=== PATIENT | female | born 1985 | race Hispanic/Latino ===

== ENCOUNTER → 2020-12-08 | Day surgery (SDC) | payer OTHER | LOC: BICULT 12:54 | PROVIDERS: ATTEND Family Medicine | PROC: 0H9U0ZX Drainage of Left Breast, Open Approach, Diagnostic (ICD-10-PCS; principal; 2020-12-08) | DX: N63.22 Unspecified lump in the left breast, upper inner quadrant (principal); N62 Hypertrophy of breast | CPT/HCPCS: 19083; 19084; 88305; 88341; 88342 ==